=== PATIENT | female | born 1960 | race Caucasian/White ===

== ENCOUNTER 2020-03-16 14:44 | Emergency (ER) | payer OTHER ==
[~2020-03-16] VITALS: Ht 175.3 cm; Wt 85.7 kg
[2020-03-16 14:55] VITALS: BP_SYST 145
--- NOTE | 2020-03-16 14:55 | NUR ---
Patient to ER bed 04 to gown for evaluation. Side rails up.
--- NOTE | 2020-03-16 14:58 | NUR ---
Patient arrived in the ED c/o right flank pain for 2 weeks now. Denied any chest pain or shortness of breath. Denied any fevers, chills, nausea or vomiting. Patient is alert and oriented x4, respirations even and unlabored, speaking in full sentences, and ambulating with a steady gait. VSS, pain level 5/10 Informed of the approximate wait time. Instructed to notify ED staff for any changes in condition or worsening of symptoms while waiting to be seen by an ED provider. Patient verbalized understanding.
--- NOTE | 2020-03-16 15:12 | NUR ---
ER Dr. Albert at bedside examining patient.
--- NOTE | 2020-03-16 16:44 | NUR ---
Patient given written and verbal discharge instructions and verbalizes understanding. ER MD discussed with patient the results and treatment provided. Patient in stable condition. ID arm band removed. Rx of [place] and Motrin given. Patient educated on pain management and to follow up with PMD. Pain Scale 0/10. Opportunity for questions provided and answered. Medication side effect fact sheet provided.
[2020-03-16 16:45] VITALS: BP_SYST 145
== END 2020-03-16 16:44 | disposition home or self-care (01) ==
LOC: SED 14:44
DX: M54.5 Low back pain (principal); Z88.0 Allergy status to penicillin; Z88.1 Allergy status to other antibiotic agents
CPT/HCPCS: 81002; 99284